=== PATIENT | female | born 1990 | race Caucasian/White ===

== ENCOUNTER 2016-10-27 06:33 | Emergency (ER) | payer OTHER ==
--- NOTE | 2016-10-27 09:24 | DIAGNOSTIC IMAGING REPORT ---
PROCEDURE: CTA THORAX WITH CONTRAST INDICATION: Status post liposuction with chest pressure, initial encounter TECHNIQUE: 80 ml of Isovue 370 was injected intravenously and axial images were obtained of the entire thorax with 3D sagittal and coronal MIP reconstructions. COMPARISON: Chest x-ray 09/16/2016 FINDINGS: No evidence of pulmonary emboli, aortic dissection or aneurysm. Mild right lower lobe and minor left basilar atelectasis. No adenopathy. Small left pleural effusion. Normal heart size. Hepatic steatosis. Bones are unremarkable. There is subcutaneous fat stranding of the flanks bilaterally consistent with a history of liposuction. IMPRESSION: 1. No evidence of pulmonary emboli 2. Right lower lobe postoperative atelectasis 3. Small left pleural effusion 4. Bilateral flank subcutaneous fat infiltration consistent with a history of liposuction 5. Hepatic steatosis 6. Results discussed with Dr. Rodriguez
--- NOTE | 2016-10-27 10:01 | ED CLINICAL REPORT ---
Clinical Report - Physicians/Mid Levels [facility] [address] [place] [address] 10/27/2016 6:33 Patient: SEAN LAWS Time Seen: 06:56. Arrived- By private vehicle. Historian- patient. HISTORY OF PRESENT ILLNESS Chief Complaint: DYSPNEA. This started today at about 5 AM and is still present. It was abrupt in onset and has been constant. The dyspnea is described as moderate. No cough, sputum production, fever, wheezing or chills. No foot swelling. She has experienced sweating episodes and had dyspnea on exertion. She complains of severe, sharp, stabbing, exertional left-sided and central chest pain, currently severe. Recent medical care: The patient was seen recently at another facility in a clinic (reports having Liposuction surgery last Tuesday, this AM had a sudden onset of chest tightness and difficulty breathing). REVIEW OF SYSTEMS No chills, fever, abdominal pain, diarrhea or nausea. No vomiting or urinary problems. She has experienced sweats and had palpitations and constipation. All systems otherwise negative, except as recorded above. PAST HISTORY PCP - Tho at [facility]. Problems: Sprain. Fall. Chest Wall Pain. Chest pain . Nausea. Migraine Headache. Chronic Headache. Anxiety Reaction. Hyperventilation. Gastroesophageal Reflux Disease. Near Syncope. Contusion. Lip Laceration. Head Injury. Syncope. Depression. Headache. Viral Disease. Abdominal Pain. Ovarian Cyst. Additional Surgeries: Appendectomy. Liposuction . Previous Abdominal Surgery. Medications: OxyCODONE HCl Oral 5 mg, as needed. Keflex Oral 500 mg, 4x a day. BusPIRone HCl Oral (Tablet 7.5 mg) 1 tablet, at bedtime. Lexapro Oral 20 mg, at bedtime. Naproxen Oral 500 mg, 2x a day. Omeprazole Oral 20 mg, 2x a day. Promethazine HCl Oral 25 mg, 4x a day as needed. Allergies: Sertraline.(rash). SOCIAL HISTORY Never smoker. Occasional alcohol use. No drug use. FAMILY HISTORY Diabetes in first-degree relative (father). ADDITIONAL NOTES The nursing notes have been reviewed. PHYSICAL EXAM Vital Signs: 10/27/2016 06:41 BP: 137/73. HR: 115. RR: 18. O2 saturation: 99%. Temp: 98.3 F. Pain level now: 8/10. Have been reviewed. Appearance: Alert. Anxious. Eyes: Pupils equal, round and reactive to light. ENT: Pharynx normal. Neck: Normal inspection. No jugular venous distention. CVS: Tachycardia. No cardiac murmur. Respiratory: No respiratory distress. Breath sounds normal. Abdomen: Soft and nontender. No organomegaly. Back: Normal inspection. No CVA tenderness. Skin: Skin warm and dry. Normal skin color. Normal skin turgor. Extremities: Extremities exhibit normal ROM. No lower extremity edema. LABS, X-RAYS, AND EKG EKG: Rate: 105. Non-specific ST segment / T wave abnormalities. Prior EKG unavailable. Changes present when compared to prior EKG. (16 Sep 2016). The study has been independently viewed by me. Chest CT: ( Exam(s): CTA THORAX WITH CONTRAST Date of Exam: 10/27/2016 __ PROCEDURE: CTA THORAX WITH CONTRAST INDICATION: Status post liposuction with chest pressure, initial encounter TECHNIQUE: 80 ml of Isovue 370 was injected intravenously and axial images were obtained of the entire thorax with 3D sagittal and coronal MIP reconstructions. COMPARISON: Chest x-ray 09/16/2016 FINDINGS: No evidence of pulmonary emboli, aortic dissection or aneurysm. Mild right lower lobe and minor left basilar atelectasis. No adenopathy. Small left pleural effusion. Normal heart size. Hepatic steatosis. Bones are unremarkable. There is subcutaneous fat stranding of the flanks bilaterally consistent with a history of liposuction. IMPRESSION: 1. No evidence of pulmonary emboli 2. Right lower lobe postoperative atelectasis 3. Small left pleural effusion 4. Bilateral flank subcutaneous fat infiltration consistent with a history of liposuction 5. Hepatic steatosis). The study was interpreted contemporaneously by me and discussed with the radiologist. Laboratory Tests: UA-Culture if indicated: (KADEN: 10/27/2016 07:15) ( [facility] [place] 07:54) Final results Test Result Flag Units (Reference) URINE COLOR YELLOW URINE APPEARANCE CLEAR URINE GLUCOSE NEGATIVE (NEGATIVE) URINE BILIRUBIN NEGATIVE (NEGATIVE) URINE KETONE NEGATIVE (NEGATIVE) URINE SPECIFIC GRAVITY 1.010 (1.010-1.030) URINE PH 7.5 (5.0-8.0) URINE PROTEIN NEGATIVE (NEGATIVE) URINE UROBILINOGEN 0.2 EU/dL (0.2-1.0) URINE NITRITE NEGATIVE (NEGATIVE) URINE BLOOD NEGATIVE (NEGATIVE) URINE LEUK ESTERASE NEGATIVE (NEGATIVE) URINE RBC NONE SEEN rbc/hpf (0-1) URINE WBC 0-1 wbc/hpf (0-1) URINE EPITHELIAL CELLS 3-5 EPI/hpf (0-5) URINE BACTERIA TRACE (<1+) (NONE SEEN) URINE COMMENT CULT NOT INDICATED URINE CULTURES ARE SET-UP BASED ON THE FOLLOWING CRITERIA:POSITIVE NITRITEPOSITIVE LEUKOCYTE ESTERASEGREATER THAN 10 WHITE BLOOD CELLSMODERATE (2+) OR GREATER BACTERIA Urine: (KADEN: 10/27/2016 07:15) ( [facility] 10/27/2016 07:41) Final results Test Result Flag Units (Reference) URINE NEGATIVE CBC w Diff: (KADEN: 10/27/2016 06:55) ( [facility] [place] 10/27/2016 07:20) Final results Test Result Flag Units (Reference) WHITE BLOOD COUNT 10.3 K/uL (4.5-11.5) RED BLOOD COUNT 3.13 L M/uL (4.00-5.20) HEMOGLOBIN 8.6 L gm/dL (12.0-16.0) HEMATOCRIT 26.5 L % (36.0-46.0) MEAN CELL VOLUME 85 fL (80-100) MEAN CORPUSCULAR HGB 27 pg (26-34) MEAN CORPUSCULAR HGB CONC 32 g/dL (31-37) RED CELL DISTRIBUTION WIDTH 15.8 H % (11.6-14.8) PLATELET COUNT 326 K/uL (150-400) NEUTROPHIL % 63.9 % (50-75) LYMPH % 24.8 L % (25-40) MONO % 7.2 % (3-14) EOSINOPHIL % 3.3 % (0-4) BASOPHIL % 0.8 % (0-2) PT with INR: (KADEN: 10/27/2016 06:55) ( MsgRcvd 10/27/2016 07:21) Final results Test Result Flag Units (Reference) INR 0.9 (0.8-1.2) Low Intensity Therapy: INR 1.5-2.0 PT range 18.5-23.1Mod.Intensity Therapy: INR 2.0-3.0 PT range 23.1-31.5High Intensity Therapy: INR 2.5-3.5 PT range 27.4-35.5High Intensity Therapy 2: INR 3.0-4.0 PT range 31.5-39.3 APTT 25 SECONDS (24-34) D-DIMER QUANTITATIVE 3.40 H ug/mLFEU (0.27-0.52) The primary value of this quantitative assay relates toits negative predictive value (i.e. exclusion) of pulmonaryembolism/deep vein thrombosis/DIC.Elevated levels of d-dimer may also occur with:, age, cancer, inflammation, liver disease,post-op, infection, hematoma, coronary disease, peripheralarteriopathy, bleeding disorders and thrombolytic treatment.Results should be correlated with other clinical andradiological data.Testing Methodology: Latex Immunoassay [id number]: (KADEN: 10/27/2016 06:55) ( MsgRcvd 10/27/2016 10:00) Final results Test Result Flag Units (Reference) PROCALCITONIN <0.5 ng/mL (0-0.5) PCT Concentration: Interpretation : Risk/option for action PCT <=0.5 ng/mL : Systemic : Low risk forinfection(sepsis): progression to severeis not likely. : systemic infection.Local bacterial : CAUTION-PCT levelsinfection is : below 0.5 ng/mL do notpossible. : exclude an infection,because localizedinfections (withoutsystemic signs) may beassociated with suchlow levels. If PCT ismeasured very earlyafter a bacterialchallenge (usually <6hours), these valuesmay still be low. Inthis case PCT shouldbe re-assessed 6-24hours later. PCT >0.5 and : Systemic infection: Moderate risk for<= 2 ng/mL : (sepsis) is : progression to severepossible, but : systemic infection.other conditions : The patient should beare known to : closely monitoredelevate PCT. : both clinically andby re-assessing PCTwithin 6-24 hours. PCT > 2 ng/mL : Systemic infection: High risk for(sepsis) is likely: progression to severeunless other : systemic infection.causes are known. : PCT >= 10 ng/mL : Important systemic: High likelihood ofinflammatory : severe sepsis orresponse, almost : septic shock.exclusively due to:severe bacterial :sepsis or septic :shock. : ALYX: (KADEN: 10/27/2016 06:55) ( MsgRcvd 10/27/2016 08:16) Final results Test Result Flag Units (Reference) CPK 628 H U/L (24-260) CK-MB 1.1 ng/mL (0.5-3.2) %CKMB 0.2 % (0.0-4.0) TROPONIN I <0.05 ng/mL (0.00-1.5) TROPONIN REFERENCE RANGE:<0.1 NEGATIVE0.1-1.5 INDETERMINANT>1.5 POSITIVE CMP: (KADEN: 10/27/2016 06:55) ( MsgRcvd 10/27/2016 07:33) Final results Test Result Flag Units (Reference) GLUCOSE 91 mg/dL (70-110) BUN 7 mg/dL (7-18) CREATININE 0.5 L mg/dL (0.6-1.3) Estimated GFR >60 mL/min Estimated GFR- >60 mL/min Note: Persistent reduction over 3 months in eGFR<60 mL/min/1.73 m2 defines CKD. Patients with eGFR values>=60 mL/min/1.73 m2 may also have CKD if evidence ofpersistent proteinuria. Additional information may be foundat www.kidney.org. SODIUM 139 mmol/L (136-145) POTASSIUM 3.7 mmol/L (3.5-5.1) CHLORIDE 104 mmol/L (98-107) CARBON DIOXIDE 27 mmol/L (21-32) CALCIUM 8.5 mg/dL (8.5-10.1) TOTAL PROTEIN 5.8 L g/dL (6.4-8.2) ALBUMIN 2.7 L g/dL (3.3-5.0) BILIRUBIN, TOTAL 0.7 mg/dL (0.0-1.0) ALKALINE PHOSPHATASE 57 U/L (46-116) AST (SGOT) 65 H U/L (15-37) ALT (SGPT) 66 U/L (12-78) LIPASE 87 U/L (73-393) AMYLASE 30 U/L (25-115) . PROGRESS AND PROCEDURES Course of Care: Patient is stable. Patient/family counseled. Old medical records ordered. Disposition: Discharged. Condition: stable. CLINICAL IMPRESSION Acute dyspnea Pleurisy with effusion. atelectasis. INSTRUCTIONS No driving or operating machinery while taking medication. (use your incentive spirometer as previously prescribed as discussed). Warnings: Further evaluation is necessary. GENERAL WARNINGS: Return or contact your physician immediately if your condition worsens or changes unexpectedly, if not improving as expected, or if other problems arise. Your Current Medications: CONTINUE TAKING THE FOLLOWING MEDICATIONS: BusPIRone HCl Oral : Tablet 7.5 mg, 1 tablet at bedtime. Keflex Oral : 500 mg 4x a day. Lexapro Oral : 20 mg at bedtime. Naproxen Oral : 500 mg 2x a day. Omeprazole Oral : 20 mg 2x a day. OxyCODONE HCl Oral : 5 mg, prn. Promethazine HCl Oral : 25 mg 4x a day, prn. Prescription Medications: Hydroxyzine 50 mg: Take 1 orally every 6 hours as needed for itching. Dispense twenty (20). No refills. Follow-up: Follow up with your doctor tomorrow. Call for an appointment. Understanding of the discharge instructions verbalized by patient and parent. (Electronically signed by Mateo Rodriguez MD 10/31/2016 14:16)
--- NOTE | 2016-10-27 10:01 | ED NURSING NOTES ---
Clinical Report - Nurses [place] [address] [place] [address] 10/27/2016 6:33 Patient: SEAN LAWS TRIAGE Triage time 06:42. Acuity: LEVEL 3. Chief Complaint: CHEST PAIN and DYSPNEA. 06:48. Alert. SEPSIS SCREEN: Sepsis Screen. Negative (no infection suspected/documented). GELA COMA SCORE: Gela Coma Scale: 15- eyes open spontaneously (4); best verbal response- oriented x 4 (5); best motor response- obeys commands (6). --06:48 Solis Horton R.N. 06:41 10/27/16. BP: 137/73. HR: 115. RR: 18. O2 saturation: 99% on room air. Temp: 98.3 F (oral). Pain level now: 05/12. --06:48 Solis Horton R.N. Weight: 86.1 kg stated. Height/Length: 64 inches Per Patient. BMI: 32.6. --06:47 Solis Horton R.N. Medications BusPIRone HCl Oral (Tablet 7.5 mg) 1 tablet, at bedtime. Lexapro Oral 20 mg, at bedtime. Naproxen Oral 500 mg, 2x a day. Omeprazole Oral 20 mg, 2x a day. Promethazine HCl Oral 25 mg, 4x a day as needed. --06:45 Solis Horton R.N. Keflex Oral 500 mg, 4x a day. --06:46 Solis Horton R.N. OxyCODONE HCl Oral 5 mg, as needed. --06:46 Solis Horton R.N. Medication/allergy information source: the patient. --06:48 Solis Horton R.N. Allergies Sertraline.(rash) --06:47 Solis Horton R.N. History Arrived by private vehicle. Historian: patient. Accompanied by mother. Primary physician ([facility]). ( Patient reports having Liposuction surgery last Tuesday, this AM had a sudden onset of chest tightness and difficulty breathing). 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 PAST MEDICAL HX: Immunizations: up-to-date. Last normal menstrual period was 2 weeks ago. SOCIAL HX: Never smoker. Occasional alcohol use. No drug use. No infectious disease exposure. ABUSE ASSESSMENT: No report of abuse. FALL RISK ASSESSMENT: Fall risk assessment completed. No fall risk identified. NUTRITIONAL RISK ASSESSMENT: The nutritional risk assessment revealed no deficiencies. FUNCTIONAL ASSESSMENT: Functional assessment: no impairments noted. LEARNING NEEDS ASSESSMENT: The learning needs assessment revealed no barriers. SKIN INTEGRITY ASSESSMENT: Skin integrity risk assessment completed. No skin integrity risk identified. --06:48 Solis Horton R.N. PROBLEMS: Chest pain . Migraine Headache. Chronic Headache. Anxiety Reaction. Hyperventilation. Gastroesophageal Reflux Disease. Depression. --06:47 Solis Horton R.N. ADDITIONAL SURGERIES: Appendectomy. Dental Surgery. Liposuction . Previous Abdominal Surgery. --06:47 Solis Horton R.N. Interventions ID band on patient. To treatment room. --06:48 Solis Horton R.N. PHYSICAL ASSESSMENT 06:49. Ambulatory to room. Patient gowned. GENERAL / NEURO / PSYCH: Alert. Oriented X 4. HEENT: No facial asymmetry noted. Mucous membranes are pink. RESPIRATORY: Respirations not labored. SKIN: Skin intact. Skin is warm and dry. Normal skin turgor. --06:49 Solis Horton R.N. NURSING PROGRESS NOTES 06:49. Head of bed elevated. Two patient identifiers checked. Call light placed in reach. Side rails up x 1. Bed placed in lowest position. Brakes of bed on. Patient ready for evaluation- chart flagged. --06:49 Solis Horton R.N. 06:57 10/27/2016 Site #1 started via IV in the right antecubital space with an 20g angiocath, with aseptic technique and good blood return; one attempt. Blood drawn: rainbow set. Labeled in the presence of the patient and sent to the lab. Saline lock flushed with 10 mL saline (by Solis Gusman RN). --07:02 Kristopher Vallejo R.N. 07:06 10/27/16. ( Pt up to provide urine sample, steady gait.). --07:06 Kristopher Vallejo R.N. 07:21 10/27/16. Cardiac rhythm: sinus tachycardia; (100). --07:21 Kristopher Vallejo R.N. 07:20 10/27/16. BP: 126/74. HR: 100. RR: 18. O2 saturation: 100% on room air. --07:21 Kristopher Vallejo R.N. 07:21 10/27/16. monitoring engineer, pulse oximeter and NIBP monitor placed on patient; monitor alarms on. --07:21 Kristopher Vallejo R.N. 07:22 10/27/16. Patient ID band checked for patient name and birthdate: patient confirmed. Clean catch urine collected with return of yellow-colored urine; sample sent to lab for urinalysis and culture. Specimen labeled in the presence of the patient. --07:22 Kristopher Vallejo R.N. 07:53 10/27/2016 Started IV Fluids IV NS (Saline); at 1000 mL/hr over 30 minute(s) via site #1. Allergies verified and confirmed 5 rights. IV patency established. IV site checked: no pain, redness, or swelling. IV flushed thoroughly pre- and post-medication administration. Completed per protocol. --07:53 Kristopher Vallejo R.N. 07:54 10/27/16. Cardiac rhythm: sinus tachycardia. EKG time: (0754 AM). EKG was ordered, performed by a tech and shown to the ED physician. --07:54 Kristopher Vallejo R.N. 08:25 10/27/2016 Zofran (Ondansetron HCl) IVP 4 mg given over 2 minute(s) via site #1. Allergies verified and confirmed 5 rights. IV patency established. IV site checked: no pain, redness, or swelling. IV flushed thoroughly pre- and post-medication administration. IVP given by RN. --08:25 Kristopher Vallejo R.N. 08:26 10/27/2016 Dilaudid (HYDROmorphone HCl PF) IVP 1 mg given over 2 minute(s) via site #1. Allergies verified, confirmed 5 rights and sedative warning given to the patient. IV patency established. IV site checked: no pain, redness, or swelling. IV flushed thoroughly pre- and post-medication administration. IVP given by RN. --08:26 Kristopher Vallejo R.N. 08:26 10/27/16. BP: 120/74. HR: 102. RR: 18. O2 saturation: 94% on room air. --08:27 Kristopher Vallejo R.N. 08:27 10/27/16. Cardiac rhythm: sinus tachycardia. --08:27 Kristopher Vallejo R.N. 09:09 10/27/16. ( CT completed). --09:09 Kristopher Vallejo R.N. 09:10 10/27/16. ( Dr Rodriguez performing eval with acid splicer). --09:10 Kristopher Vallejo R.N. 09:14 10/27/2016 Hydroxyzine (HydrOXYzine HCl) PO Capsules 25 mg given. Allergies verified, confirmed 5 rights and sedative warning given to the patient's night baker. --09:14 Montez Jaramillo R.N. 09:40 10/27/16. BP: 126/70. HR: 111. RR: 20. O2 saturation: 95% on room air. --09:40 Kristopher Vallejo R.N. 09:40 10/27/16. --09:40 Kristopher Vallejo R.N. 09:40 10/27/16. Cardiac rhythm: sinus tachycardia; (109). --09:40 Kristopher Vallejo R.N. 09:44 10/27/16. HR: 111. RR: 20. O2 saturation: 94% on room air. Temp: 98.3 F (oral). --09:45 Kristopher Vallejo R.N. 09:45 10/27/16. Cardiac rhythm: sinus tachycardia; (111). --09:45 Kristopher Vallejo R.N. 09:45 10/27/16. ( Educated about IS use, Coughing and deep breathing exercises). --09:45 Kristopher Vallejo R.N. 10:05 10/27/2016 IV Fluids IV NS Discontinued: bag #1 upon discharge. Total amount infused: 750 mL. IV patency established. IV site checked: no pain, redness, or swelling. IV flushed thoroughly. --10:15 Kristopher Vallejo R.N. DISPOSITION / DISCHARGE 10:13 10/27/2016 Site #1 removed upon discharge. Catheter intact. --10:13 Kristopher Vallejo R.N. 10:14 10/27/16. Cardiac rhythm: sinus tachycardia. Condition at departure: improved. The goals identified in the patient's plan of care were met. No learning barriers present. Discharge instructions provided and reviewed with the patient and family. Reviewed warnings. Reviewed medication(s). Treatments reviewed. Patient and family verbalized understanding. Written instructions provided in Macedonian. The patient was discharged by the physician. She was discharged home and accompanied by family. She left the Emergency Department ambulatory and via private vehicle. Family member driving. FALL RISK ASSESSMENT: Fall risk assessment completed. No fall risk identified. --10:14 Kristopher Vallejo R.N. 10:13 10/27/16. BP: 126/72. HR: 106. RR: 20. O2 saturation: 95% on room air. Temp: 98.5 F (oral). --10:14 Kristopher Valleoj R.N. 10:14 10/27/16. Departure time: 10:14. --10:14 Kristopher Vallejo R.N. Locked/Released at 10/27/2016 10:18 by Kristopher Vallejo R.N.
--- NOTE | 2016-10-27 10:01 | ED ORDER SUMMARY ---
..... Patient: SEAN LAWS OrderSheet [facility] VisitID: [id number] [place] [address] 26y, F Registration Date/Time: 10/27/2016 ORDER SHEET Weight: 86.1 kg (stated) Allergies: Sertraline GENERAL ORDERS: Chest 1V Urgent (06:57 10/27/2016 Dayne WALTERS) (Ack 6:59 CHagsterling ER Sample Driller) (Cancelled: Other7:58 Dayne WALTERS) CBC w Diff Urgent (06:57 10/27/2016 Dayne WALTERS) (Ack 6:59 CHagsterling ER Sample Driller) (7:02 JBoardley R.N.) CMP Urgent (06:10/27/2016 Dayne WALTERS) (Ack 6:59 CHagsterling ER Sample Driller) (7:02 JBoardley R.N.) PT with INR Urgent (06:57 10/27/2016 Dayne WALTERS) (Ack 6:59 Maria M ER Sample Driller) (7:02 JBoardley R.N.) PTT Urgent (06:57 10/27/2016 Dayne WALTERS) (Ack 6:59 CHagsterling ER Sample Driller) (7:02 JBoardley R.N.) Amylase Urgent (06:57 10/27/2016 Dayne WALTERS) (Ack 6:59 CHagsterling ER Sample Driller) (7:02 JBoardley R.N.) Lipase Urgent (06:57 10/27/2016 Dayne WALTERS) (Ack 6:59 CHagsterling ER Sample Driller) (7:02 JBoardley R.N.) D-Dimer Urgent (06:57 10/27/2016 Dayne WALTERS) (Ack 6:59 CHagsterling ER Sample Driller) (7:02 JBoardley R.N.) Urine Urgent (06:57 10/27/2016 Dayne WALTERS) (Ack 6:59 CHagsterling ER Sample Driller) (7:20 JBoardley R.N.) UA-Culture if indicated Urgent (06:57 10/27/2016 Dayne WALTERS) (Ack 6:59 CHagsterling ER Sample Driller) (7:20 JBoardley R.N.) Dog Obedience Instructor (Continuous) (07:21 10/27/2016 JBoardley R.N. per protocol) (7:22 JBoardley R.N.) Pulse oximeter (07:21 10/27/2016 JBoardley R.N. per protocol) (7:22 JBoardley R.N.) EKG - ER Stat (07:35 10/27/2016 JBoardley R.N. verbal order read back to Dayne WALTERS) (7:53 JBoardley R.N.) CPK Urgent (07:38 10/27/2016 Dayne WALTERS) (Ack 8:03 LNations ER Tech1) (8:27 JBoardley R.N.) Troponin-I Urgent (07:38 10/27/2016 Dayne WALTERS) (Ack 8:03 LNations ER Tech1) (8:27 JBoardley R.N.) CTA Thorax w Cont (No) (See report) Urgent (07:48 10/27/2016 Dayne WALTERS) (Ack 8:03 LNations ER Tech1) (9:09 JBoardley R.N.) PCT (Procalcitonin) Urgent (09:05 10/27/2016 Dayne WALTERS) (Ack 9:19 LNations ER Tech1) (9:36 JBoardley R.N.) MEDICATION ORDERS: HydrOXYzine PO 25 mg (NOW) (09:10 10/27/2016 Dayne WALTERS) (Ack 9:13 JBoardley R.N.) (9:14 LWhalen R.N.) IV FLUIDS: IV Saline Lock (06:57 10/27/2016 Dayne WALTERS) (Ack 7:02 JBoardley R.N.) (7:02 JBoardley R.N.) IV NS : initial bolus 500 mL (1000 mL/hr), then 125 mL/hr for 4h (NOW); Urgent (07:44 10/27/2016 Dayne WALTERS) (Ack 7:48 JBoardley R.N.) (7:53 JBoardley R.N.) Zofran IV 4 mg (NOW) (08:25 10/27/2016 Kathie Johnson verbal order read back to Dayne WALTERS) (8:25 Kathie Johnson) Dilaudid IV 1 mg (HIGH ALERT MEDICATION, NOW) (08:25 10/27/2016 Kathie Johnson verbal order read back to Dayne WALTERS) (8:26 Kathie Johnson) ORDER SHEET NOTES: [Electronically signed by Kristopher Vallejo R.N. (10:18 10/27/2016)] [Electronically signed by Mateo Rodriguez MD (14:16 10/31/2016)] [Electronically locked/signed by Kristopher Valeljo R.N. (10:18 10/27/2016)]
--- NOTE | 2016-10-27 10:01 | ED NURSING NOTES ---
Clinical Report - Nurses [place] [address] [place] [address] 10/27/2016 6:33 Patient: SEAN LAWS TRIAGE Triage time 06:42. Acuity: LEVEL 3. Chief Complaint: CHEST PAIN and DYSPNEA. 06:48. Alert. SEPSIS SCREEN: Sepsis Screen. Negative (no infection suspected/documented). GELA COMA SCORE: Gela Coma Scale: 15- eyes open spontaneously (4); best verbal response- oriented x 4 (5); best motor response- obeys commands (6). --06:48 Solis Horton R.N. 06:41 10/27/16. BP: 137/73. HR: 115. RR: 18. O2 saturation: 99% on room air. Temp: 98.3 F (oral). Pain level now: 05/12. --06:48 Solis Horton R.N. Weight: 86.1 kg stated. Height/Length: 64 inches Per Patient. BMI: 32.6. --06:47 Solis Horton R.N. Medications BusPIRone HCl Oral (Tablet 7.5 mg) 1 tablet, at bedtime. Lexapro Oral 20 mg, at bedtime. Naproxen Oral 500 mg, 2x a day. Omeprazole Oral 20 mg, 2x a day. Promethazine HCl Oral 25 mg, 4x a day as needed. --06:45 Solis Horton R.N. Keflex Oral 500 mg, 4x a day. --06:46 Solis Horton R.N. OxyCODONE HCl Oral 5 mg, as needed. --06:46 Solis Horton R.N. Medication/allergy information source: the patient. --06:48 Solis Horton R.N. Allergies Sertraline.(rash) --06:47 Solis Horton R.N. History Arrived by private vehicle. Historian: patient. Accompanied by mother. Primary physician ([facility]). ( Patient reports having Liposuction surgery last Tuesday, this AM had a sudden onset of chest tightness and difficulty breathing). Treatment MANAGER INVENTORY MANAGEMENT: (Oxycodone 5mg took 2 about 2 hras ago). PAST MEDICAL HX: Immunizations: up-to-date. Last normal menstrual period was 2 weeks ago. SOCIAL HX: Never smoker. Occasional alcohol use. No drug use. No infectious disease exposure. ABUSE ASSESSMENT: No report of abuse. FALL RISK ASSESSMENT: Fall risk assessment completed. No fall risk identified. NUTRITIONAL RISK ASSESSMENT: The nutritional risk assessment revealed no deficiencies. FUNCTIONAL ASSESSMENT: Functional assessment: no impairments noted. LEARNING NEEDS ASSESSMENT: The learning needs assessment revealed no barriers. SKIN INTEGRITY ASSESSMENT: Skin integrity risk assessment completed. No skin integrity risk identified. --06:48 Solis Horton R.N. PROBLEMS: Chest pain . Migraine Headache. Chronic Headache. Anxiety Reaction. Hyperventilation. Gastroesophageal Reflux Disease. Depression. --06:47 Solis Horton R.N. ADDITIONAL SURGERIES: Appendectomy. Dental Surgery. Liposuction . Previous Abdominal Surgery. --06:47 Solis Horton R.N. Interventions ID band on patient. To treatment room. --06:48 Solis Horton R.N. PHYSICAL ASSESSMENT 06:49. Ambulatory to room. Patient gowned. GENERAL / NEURO / PSYCH: Alert. Oriented X 4. HEENT: No facial asymmetry noted. Mucous membranes are pink. RESPIRATORY: Respirations not labored. SKIN: Skin intact. Skin is warm and dry. Normal skin turgor. --06:49 Solis Horton R.N. NURSING PROGRESS NOTES 06:49. Head of bed elevated. Two patient identifiers checked. Call light placed in reach. Side rails up x 1. Bed placed in lowest position. Brakes of bed on. Patient ready for evaluation- chart flagged. --06:49 Solis Horton R.N. 06:57 10/27/2016 Site #1 started via IV in the right antecubital space with an 20g angiocath, with aseptic technique and good blood return; one attempt. Blood drawn: rainbow set. Labeled in the presence of the patient and sent to the lab. Saline lock flushed with 10 mL saline (by Solis Gusman RN). --07:02 Kristopher Vallejo R.N. 07:06 10/27/16. ( Pt up to provide urine sample, steady gait.). --07:06 Kristopher Vallejo R.N. 07:21 10/27/16. Cardiac rhythm: sinus tachycardia; (100). --07:21 Kristopher Vallejo R.N. 07:20 10/27/16. BP: 126/74. HR: 100. RR: 18. O2 saturation: 100% on room air. --07:21 Kristopher Vallejo R.N. 07:21 10/27/16. awake overnight monitor, pulse oximeter and NIBP monitor placed on patient; monitor alarms on. --07:21 Kristopher Vallejo R.N. 07:22 10/27/16. Patient ID band checked for patient name and birthdate: patient confirmed. Clean catch urine collected with return of yellow-colored urine; sample sent to lab for urinalysis and culture. Specimen labeled in the presence of the patient. --07:22 Kristopher Vallejo R.N. 07:53 10/27/2016 Started IV Fluids IV NS (Saline); at 1000 mL/hr over 30 minute(s) via site #1. Allergies verified and confirmed 5 rights. IV patency established. IV site checked: no pain, redness, or swelling. IV flushed thoroughly pre- and post-medication administration. Completed per protocol. --07:53 Kristopher Vallejo R.N. 07:54 10/27/16. Cardiac rhythm: sinus tachycardia. EKG time: (0754 AM). EKG was ordered, performed by a tech and shown to the ED physician. --07:54 Kristopher Vallejo R.N. 08:25 10/27/2016 Zofran (Ondansetron HCl) IVP 4 mg given over 2 minute(s) via site #1. Allergies verified and confirmed 5 rights. IV patency established. IV site checked: no pain, redness, or swelling. IV flushed thoroughly pre- and post-medication administration. IVP given by RN. --08:25 Kristopher Vallejo R.N. 08:26 10/27/2016 Dilaudid (HYDROmorphone HCl PF) IVP 1 mg given over 2 minute(s) via site #1. Allergies verified, confirmed 5 rights and sedative warning given to the patient. IV patency established. IV site checked: no pain, redness, or swelling. IV flushed thoroughly pre- and post-medication administration. IVP given by RN. --08:26 Kristopher Vallejo R.N. 08:26 10/27/16. BP: 120/74. HR: 102. RR: 18. O2 saturation: 94% on room air. --08:27 Kristopher Vallejo R.N. 08:27 10/27/16. Cardiac rhythm: sinus tachycardia. --08:27 Kristopher Vallejo R.N. 09:09 10/27/16. ( CT completed). --09:09 Kristopher Vallejo R.N. 09:10 10/27/16. ( Dr Rodriguez performing eval with trial court justice). --09:10 Kristopher Vallejo R.N. 09:14 10/27/2016 Hydroxyzine (HydrOXYzine HCl) PO Capsules 25 mg given. Allergies verified, confirmed 5 rights and sedative warning given to the patient's certified orthotist/pedorthist. --09:14 Montez Jaramillo R.N. 09:40 10/27/16. BP: 126/70. HR: 111. RR: 20. O2 saturation: 95% on room air. --09:40 Kristopher Vallejo R.N. 09:40 10/27/16. --09:40 Kristopher Vallejo R.N. 09:40 10/27/16. Cardiac rhythm: sinus tachycardia; (109). --09:40 Kristopher Vallejo R.N. 09:44 10/27/16. HR: 111. RR: 20. O2 saturation: 94% on room air. Temp: 98.3 F (oral). --09:45 Kristopher Vallejo R.N. 09:45 10/27/16. Cardiac rhythm: sinus tachycardia; (111). --09:45 Kristopher Vallejo R.N. 09:45 10/27/16. ( Educated about IS use, Coughing and deep breathing exercises). --09:45 Kristopher Vallejo R.N. 10:05 10/27/2016 IV Fluids IV NS Discontinued: bag #1 upon discharge. Total amount infused: 750 mL. IV patency established. IV site checked: no pain, redness, or swelling. IV flushed thoroughly. --10:15 Kristopher Vallejo R.N. DISPOSITION / DISCHARGE 10:13 10/27/2016 Site #1 removed upon discharge. Catheter intact. --10:13 Kristopher Vallejo R.N. 10:14 10/27/16. Cardiac rhythm: sinus tachycardia. Condition at departure: improved. The goals identified in the patient's plan of care were met. No learning barriers present. Discharge instructions provided and reviewed with the patient and family. Reviewed warnings. Reviewed medication(s). Treatments reviewed. Patient and family verbalized understanding. Written instructions provided in Citizen Of [place]. The patient was discharged by the physician. She was discharged home and accompanied by family. She left the Emergency Department ambulatory and via private vehicle. Family member driving. FALL RISK ASSESSMENT: Fall risk assessment completed. No fall risk identified. --10:14 Kristopher Vallejo R.N. 10:13 10/27/16. BP: 126/72. HR: 106. RR: 20. O2 saturation: 95% on room air. Temp: 98.5 F (oral). --10:14 Kristopher Vallejo R.N. 10:14 10/27/16. Departure time: 10:14. --10:14 Kristopher Vallejo R.N. Locked/Released at 10/27/2016 10:18 by Kristopher Vallejo R.N.
--- NOTE | 2016-10-27 10:01 | ED CLINICAL REPORT ---
Clinical Report - Physicians/Mid Levels [facility] [address] [place] [address] 10/27/2016 6:33 Patient: SEAN LAWS Time Seen: 06:56. Arrived- By private vehicle. Historian- patient. HISTORY OF PRESENT ILLNESS Chief Complaint: DYSPNEA. This started today at about 5 AM and is still present. It was abrupt in onset and has been constant. The dyspnea is described as moderate. No cough, sputum production, fever, wheezing or chills. No foot swelling. She has experienced sweating episodes and had dyspnea on exertion. She complains of severe, sharp, stabbing, exertional left-sided and central chest pain, currently severe. Recent medical care: The patient was seen recently at another facility in a clinic (reports having Liposuction surgery last Tuesday, this AM had a sudden onset of chest tightness and difficulty breathing). REVIEW OF SYSTEMS No chills, fever, abdominal pain, diarrhea or nausea. No vomiting or urinary problems. She has experienced sweats and had palpitations and constipation. All systems otherwise negative, except as recorded above. PAST HISTORY PCP - Tho at [facility]. Problems: Sprain. Fall. Chest Wall Pain. Chest pain . Nausea. Migraine Headache. Chronic Headache. Anxiety Reaction. Hyperventilation. Gastroesophageal Reflux Disease. Near Syncope. Contusion. Lip Laceration. Head Injury. Syncope. Depression. Headache. Viral Disease. Abdominal Pain. Ovarian Cyst. Additional Surgeries: Appendectomy. Liposuction . Previous Abdominal Surgery. Medications: OxyCODONE HCl Oral 5 mg, as needed. Keflex Oral 500 mg, 4x a day. BusPIRone HCl Oral (Tablet 7.5 mg) 1 tablet, at bedtime. Lexapro Oral 20 mg, at bedtime. Naproxen Oral 500 mg, 2x a day. Omeprazole Oral 20 mg, 2x a day. Promethazine HCl Oral 25 mg, 4x a day as needed. Allergies: Sertraline.(rash). SOCIAL HISTORY Never smoker. Occasional alcohol use. No drug use. FAMILY HISTORY Diabetes in first-degree relative (father). ADDITIONAL NOTES The nursing notes have been reviewed. PHYSICAL EXAM Vital Signs: 10/27/2016 06:41 BP: 137/73. HR: 115. RR: 18. O2 saturation: 99%. Temp: 98.3 F. Pain level now: 8/10. Have been reviewed. Appearance: Alert. Anxious. Eyes: Pupils equal, round and reactive to light. ENT: Pharynx normal. Neck: Normal inspection. No jugular venous distention. CVS: Tachycardia. No cardiac murmur. Respiratory: No respiratory distress. Breath sounds normal. Abdomen: Soft and nontender. No organomegaly. Back: Normal inspection. No CVA tenderness. Skin: Skin warm and dry. Normal skin color. Normal skin turgor. Extremities: Extremities exhibit normal ROM. No lower extremity edema. LABS, X-RAYS, AND EKG EKG: Rate: 105. Non-specific ST segment / T wave abnormalities. Prior EKG unavailable. Changes present when compared to prior EKG. (16 Sep 2016). The study has been independently viewed by me. Chest CT: ( Exam(s): CTA THORAX WITH CONTRAST Date of Exam: 10/27/2016 __ PROCEDURE: CTA THORAX WITH CONTRAST INDICATION: Status post liposuction with chest pressure, initial encounter TECHNIQUE: 80 ml of Isovue 370 was injected intravenously and axial images were obtained of the entire thorax with 3D sagittal and coronal MIP reconstructions. COMPARISON: Chest x-ray 09/16/2016 FINDINGS: No evidence of pulmonary emboli, aortic dissection or aneurysm. Mild right lower lobe and minor left basilar atelectasis. No adenopathy. Small left pleural effusion. Normal heart size. Hepatic steatosis. Bones are unremarkable. There is subcutaneous fat stranding of the flanks bilaterally consistent with a history of liposuction. IMPRESSION: 1. No evidence of pulmonary emboli 2. Right lower lobe postoperative atelectasis 3. Small left pleural effusion 4. Bilateral flank subcutaneous fat infiltration consistent with a history of liposuction 5. Hepatic steatosis). The study was interpreted contemporaneously by me and discussed with the radiologist. Laboratory Tests: UA-Culture if indicated: (KADEN: 10/27/2016 07:15) ( [facility] [place] 10/27/2016 07:54) Final results Test Result Flag Units (Reference) URINE COLOR YELLOW URINE APPEARANCE CLEAR URINE GLUCOSE NEGATIVE (NEGATIVE) URINE BILIRUBIN NEGATIVE (NEGATIVE) URINE KETONE NEGATIVE (NEGATIVE) URINE SPECIFIC GRAVITY 1.010 (1.010-1.030) URINE PH 7.5 (5.0-8.0) URINE PROTEIN NEGATIVE (NEGATIVE) URINE UROBILINOGEN 0.2 EU/dL (0.2-1.0) URINE NITRITE NEGATIVE (NEGATIVE) URINE BLOOD NEGATIVE (NEGATIVE) URINE LEUK ESTERASE NEGATIVE (NEGATIVE) URINE RBC NONE SEEN rbc/hpf (0-1) URINE WBC 0-1 wbc/hpf (0-1) URINE EPITHELIAL CELLS 3-5 EPI/hpf (0-5) URINE BACTERIA TRACE (<1+) (NONE SEEN) URINE COMMENT CULT NOT INDICATED URINE CULTURES ARE SET-UP BASED ON THE FOLLOWING CRITERIA:POSITIVE NITRITEPOSITIVE LEUKOCYTE ESTERASEGREATER THAN 10 WHITE BLOOD CELLSMODERATE (2+) OR GREATER BACTERIA Urine: (KADEN: 10/27/2016 07:15) ( [facility] [place] 10/27/2016 07:41) Final results Test Result Flag Units (Reference) URINE NEGATIVE CBC w Diff: (KADEN: 10/27/2016 06:55) ( [facility] 10/27/2016 07:20) Final results Test Result Flag Units (Reference) WHITE BLOOD COUNT 10.3 K/uL (4.5-11.5) RED BLOOD COUNT 3.13 L M/uL (4.00-5.20) HEMOGLOBIN 8.6 L gm/dL (12.0-16.0) HEMATOCRIT 26.5 L % (36.0-46.0) MEAN CELL VOLUME 85 fL (80-100) MEAN CORPUSCULAR HGB 27 pg (26-34) MEAN CORPUSCULAR HGB CONC 32 g/dL (31-37) RED CELL DISTRIBUTION WIDTH 15.8 H % (11.6-14.8) PLATELET COUNT 326 K/uL (150-400) NEUTROPHIL % 63.9 % (50-75) LYMPH % 24.8 L % (25-40) MONO % 7.2 % (3-14) EOSINOPHIL % 3.3 % (0-4) BASOPHIL % 0.8 % (0-2) PT with INR: (KADEN: 10/27/2016 06:55) ( MsgRcvd 10/27/2016 07:21) Final results Test Result Flag Units (Reference) INR 0.9 (0.8-1.2) Low Intensity Therapy: INR 1.5-2.0 PT range 18.5-23.1Mod.Intensity Therapy: INR 2.0-3.0 PT range 23.1-31.5High Intensity Therapy: INR 2.5-3.5 PT range 27.4-35.5High Intensity Therapy 2: INR 3.0-4.0 PT range 31.5-39.3 APTT 25 SECONDS (24-34) D-DIMER QUANTITATIVE 3.40 H ug/mLFEU (0.27-0.52) The primary value of this quantitative assay relates toits negative predictive value (i.e. exclusion) of pulmonaryembolism/deep vein thrombosis/DIC.Elevated levels of d-dimer may also occur with:, age, cancer, inflammation, liver disease,post-op, infection, hematoma, coronary disease, peripheralarteriopathy, bleeding disorders and thrombolytic treatment.Results should be correlated with other clinical andradiological data.Testing Methodology: Latex Immunoassay [id number]: (KADEN: 10/27/2016 06:55) ( MsgRcvd 10/27/2016 10:00) Final results Test Result Flag Units (Reference) PROCALCITONIN <0.5 ng/mL (0-0.5) PCT Concentration: Interpretation : Risk/option for action PCT <=0.5 ng/mL : Systemic : Low risk forinfection(sepsis): progression to severeis not likely. : systemic infection.Local bacterial : CAUTION-PCT levelsinfection is : below 0.5 ng/mL do notpossible. : exclude an infection,because localizedinfections (withoutsystemic signs) may beassociated with suchlow levels. If PCT ismeasured very earlyafter a bacterialchallenge (usually <6hours), these valuesmay still be low. Inthis case PCT shouldbe re-assessed 6-24hours later. PCT >0.5 and : Systemic infection: Moderate risk for<= 2 ng/mL : (sepsis) is : progression to severepossible, but : systemic infection.other conditions : The patient should beare known to : closely monitoredelevate PCT. : both clinically andby re-assessing PCTwithin 6-24 hours. PCT > 2 ng/mL : Systemic infection: High risk for(sepsis) is likely: progression to severeunless other : systemic infection.causes are known. : PCT >= 10 ng/mL : Important systemic: High likelihood ofinflammatory : severe sepsis orresponse, almost : septic shock.exclusively due to:severe bacterial :sepsis or septic :shock. : ALYX: (KADEN: 10/27/2016 06:55) ( MsgRcvd 10/27/2016 08:16) Final results Test Result Flag Units (Reference) CPK 628 H U/L (24-260) CK-MB 1.1 ng/mL (0.5-3.2) %CKMB 0.2 % (0.0-4.0) TROPONIN I <0.05 ng/mL (0.00-1.5) TROPONIN REFERENCE RANGE:<0.1 NEGATIVE0.1-1.5 INDETERMINANT>1.5 POSITIVE CMP: (KADEN: 10/27/2016 06:55) ( MsgRcvd 10/27/2016 07:33) Final results Test Result Flag Units (Reference) GLUCOSE 91 mg/dL (70-110) BUN 7 mg/dL (7-18) CREATININE 0.5 L mg/dL (0.6-1.3) Estimated GFR >60 mL/min Estimated GFR- >60 mL/min Note: Persistent reduction over 3 months in eGFR<60 mL/min/1.73 m2 defines CKD. Patients with eGFR values>=60 mL/min/1.73 m2 may also have CKD if evidence ofpersistent proteinuria. Additional information may be foundat www.kidney.org. SODIUM 139 mmol/L (136-145) POTASSIUM 3.7 mmol/L (3.5-5.1) CHLORIDE 104 mmol/L (98-107) CARBON DIOXIDE 27 mmol/L (21-32) CALCIUM 8.5 mg/dL (8.5-10.1) TOTAL PROTEIN 5.8 L g/dL (6.4-8.2) ALBUMIN 2.7 L g/dL (3.3-5.0) BILIRUBIN, TOTAL 0.7 mg/dL (0.0-1.0) ALKALINE PHOSPHATASE 57 U/L (46-116) AST (SGOT) 65 H U/L (15-37) ALT (SGPT) 66 U/L (12-78) LIPASE 87 U/L (73-393) AMYLASE 30 U/L (25-115) . PROGRESS AND PROCEDURES Course of Care: Patient is stable. Patient/family counseled. Old medical records ordered. Disposition: Discharged. Condition: stable. CLINICAL IMPRESSION Acute dyspnea Pleurisy with effusion. atelectasis. INSTRUCTIONS No driving or operating machinery while taking medication. (use your incentive spirometer as previously prescribed as discussed). Warnings: Further evaluation is necessary. GENERAL WARNINGS: Return or contact your physician immediately if your condition worsens or changes unexpectedly, if not improving as expected, or if other problems arise. Your Current Medications: CONTINUE TAKING THE FOLLOWING MEDICATIONS: BusPIRone HCl Oral : Tablet 7.5 mg, 1 tablet at bedtime. Keflex Oral : 500 mg 4x a day. Lexapro Oral : 20 mg at bedtime. Naproxen Oral : 500 mg 2x a day. Omeprazole Oral : 20 mg 2x a day. OxyCODONE HCl Oral : 5 mg, prn. Promethazine HCl Oral : 25 mg 4x a day, prn. Prescription Medications: Hydroxyzine 50 mg: Take 1 orally every 6 hours as needed for itching. Dispense twenty (20). No refills. Follow-up: Follow up with your doctor tomorrow. Call for an appointment. Understanding of the discharge instructions verbalized by patient and parent. (Electronically signed by Mateo Rodriguez MD 10/31/2016 14:16)
--- NOTE | 2016-10-27 10:01 | ED ORDER SUMMARY ---
..... Patient: SEAN LAWS OrderSheet [facility] VisitID: [id number] [place] [address] 26y, F Registration Date/Time: 10/27/2016 ORDER SHEET Weight: 86.1 kg (stated) Allergies: Sertraline GENERAL ORDERS: Chest 1V Urgent (06:57 10/27/2016 Dayne WALTERS) (Ack 6:59 [facility]agsterling [facility] Bell Spinner Sousaphones) (Cancelled: Other7:58 Dayne WALTERS) CBC w Diff Urgent (06:57 10/27/2016 Dayne WALTERS) (Ack 6:59 [facility]sterling ER [facility] Sousaphones) (7:02 JBoardley R.N.) CMP Urgent (06:10/27/2016 Dayne WALTERS) (Ack 6:59 [facility] [employer] Sousaphones) (7:02 JBoardley R.N.) PT with INR Urgent (06:57 10/27/2016 Dayne WALTERS) (Ack 6:59 Maria M ER [facility] [employer] Sousaphones) (7:02 JBoardley R.N.) PTT Urgent (06:57 10/27/2016 Dayne WALTERS) (Ack 6:59 [facility] [employer] Sousaphones) (7:02 JBoardley R.N.) Amylase Urgent (06:57 10/27/2016 Dayne WALTERS) (Ack 6:59 [facility]ling [facility] [employer]inner Sousaphones) (7:02 JBoardley R.N.) Lipase Urgent (06:57 10/27/2016 Dayne WALTERS) (Ack 6:59 [facility]ling ER [facility] [employer]inner Sousaphones) (7:02 JBoardley R.N.) D-Dimer Urgent (06:57 10/27/2016 Dayne WALTERS) (Ack 6:59 CHag[facility]ling ER [facility] [employer]inner Sousaphones) (7:02 JBoardley R.N.) Urine Urgent (06:57 10/27/2016 Dayne WALTERS) (Ack 6:59 CHagsterling ER [facility] [employer]inner Sousaphones) (7:20 JBoardley R.N.) UA-Culture if indicated Urgent (06:57 10/27/2016 Dayne WALTERS) (Ack 6:59 CHagsterling ER [facility] [employer]inner Sousaphones) (7:20 JBoardley R.N.) Corn Cutter Operator (Continuous) (07:21 10/27/2016 JBoardley R.N. per protocol) (7:22 JBoardley R.N.) Pulse oximeter (07:21 10/27/2016 JBoardley R.N. per protocol) (7:22 JBoardley R.N.) EKG - ER Stat (07:35 10/27/2016 JBoardley R.N. verbal order read back to Dayne WALTERS) (7:53 JBoardley R.N.) CPK Urgent (07:38 10/27/2016 Dayne WALTERS) (Ack 8:03 LNations ER Tech1) (8:27 JBoardley R.N.) Troponin-I Urgent (07:38 10/27/2016 Dayne WALTERS) (Ack 8:03 LNations ER Tech1) (8:27 JBoardley R.N.) CTA Thorax w Cont (No) (See report) Urgent (07:48 10/27/2016 Dayne WALTERS) (Ack 8:03 LNations ER Tech1) (9:09 JBoardley R.N.) PCT (Procalcitonin) Urgent (09:05 10/27/2016 Dayne WALTERS) (Ack 9:19 LNations ER Tech1) (9:36 JBoardley R.N.) MEDICATION ORDERS: HydrOXYzine PO 25 mg (NOW) (09:10 10/27/2016 Dayne WALTERS) (Ack 9:13 JBoardley R.N.) (9:14 LWhalen R.N.) IV FLUIDS: IV Saline Lock (06:57 10/27/2016 Dayne WALTERS) (Ack 7:02 JBoardley R.N.) (7:02 JBoardley R.N.) IV NS : initial bolus 500 mL (1000 mL/hr), then 125 mL/hr for 4h (NOW); Urgent (07:44 10/27/2016 Dayne WALTERS) (Ack 7:48 JBoardley R.N.) (7:53 JBoardley R.N.) Zofran IV 4 mg (NOW) (08:25 10/27/2016 Kathie Johnson verbal order read back to Dayne WALTERS) (8:25 Kathie Johnson) Dilaudid IV 1 mg (HIGH ALERT MEDICATION, NOW) (08:25 10/27/2016 Kathie Johnson verbal order read back to Danye WALTERS) (8:26 Kathie Johnson) ORDER SHEET NOTES: [Electronically signed by Kristopher Vallejo R.N. (10:18 10/27/2016)] [Electronically signed by Mateo Rodriguez MD (14:16 10/31/2016)] [Electronically locked/signed by Kristopher Vallejo R.N. (10:18 10/27/2016)]
--- NOTE | 2016-10-31 14:16 | ED MED RECONCILIATION SUMMARY ---
Patient: SEAN LAWS Medication Reconciliation Report [facility] VisitID: [id number] [address] [place] [address] 26y, F Registration Date/Time: 10/27/2016 Weight: 86.1 kg Height/Length: 64 in. BMI: 32.6 ALLERGIES: Sertraline The patient's Home Medications are listed below: CONTINUE TAKING THE FOLLOWING MEDICATIONS: BusPIRone HCl Oral (7.5 mg) 1 tablet, at bedtime Keflex Oral 500 mg, 4x a day Lexapro Oral 20 mg, at bedtime Naproxen Oral 500 mg, 2x a day Omeprazole Oral 20 mg, 2x a day OxyCODONE HCl Oral 5 mg Promethazine HCl Oral 25 mg, 4x a day The source(s) of the original Home Medication information: patient The following Medications were given to the patient in the Emergency Department: IV NS IV Fluids bolus 0, then 1000 mL/hr, administered: 10/27/2016 7:53:00 AM Zofran [IVP] IVP 4 mg, administered: 10/27/2016 8:25:00 AM Dilaudid [IVP] IVP 1 mg, administered: 10/27/2016 8:26:00 AM Hydroxyzine [PO] PO 25 mg, administered: 10/27/2016 9:14:00 AM The following Medications were prescribed to the patient: Hydroxyzine 50 mg: Take 1 orally every 6 hours as needed for itching. Dispense twenty (20). No refills. -- Mateo Rodriguez MD
--- NOTE | 2016-10-31 14:16 | ED DISCHARGE INSTRUCTIONS ---
Patient: SEAN LAWS General Instructions [facility] VisitID: [id number] [place] [address] 26y, F Registration Date/Time: 10/27/2016 Acute dyspnea Pleurisy with effusion. atelectasis. INSTRUCTIONS No driving or operating machinery while taking medication. (use your incentive spirometer as previously prescribed as discussed). Warnings: Further evaluation is necessary. GENERAL WARNINGS: Return or contact your physician immediately if your condition worsens or changes unexpectedly, if not improving as expected, or if other problems arise. Your Current Medications: CONTINUE TAKING THE FOLLOWING MEDICATIONS: BusPIRone HCl Oral : Tablet 7.5 mg, 1 tablet at bedtime. Keflex Oral : 500 mg 4x a day. Lexapro Oral : 20 mg at bedtime. Naproxen Oral : 500 mg 2x a day. Omeprazole Oral : 20 mg 2x a day. OxyCODONE HCl Oral : 5 mg, prn. Promethazine HCl Oral : 25 mg 4x a day, prn. Prescription Medications: Hydroxyzine 50 mg: Take 1 orally every 6 hours as needed for itching. Dispense twenty (20). No refills. Follow-up: Follow up with your doctor tomorrow. Call for an appointment. Understanding of the discharge instructions verbalized by patient and parent. ADDITIONAL INFORMATION Dyspnea (Shortness Of Breath) Shortness of Breath (also known as "Dyspnea") is the sense that you can't catch your breath or can't get enough air. Dyspnea can be caused by many different conditions such as: Acute asthma attack Worsening of emphysema (also called "COPD") -- a lung diseasethat is caused by smoking A mucus plug blocks a large air passage in the lung -- this can occur with emphysema or chronic bronchitis Congestive Heart Failure ("CHF") -- when a weak heart muscle allows excess fluid to collect inthe lungs Panic attacks, anxiety -- fear can cause rapid breathing ("hyperventilation") Pneumonia -- infection in the lung tissue Exposure to toxic fumes or smoke Pulmonary embolus (blood clot to the lung) Based on your visit today, the exact cause of your shortness of breath is not certain. Your tests do not show any of the serious causes of dyspnea. Sometimes, further testing is needed to find out if a serious problem exists. Therefore, it is important for you to watch for any new symptoms or worsening of your condition and follow up with your doctor as directed. Home Care: When your symptoms are better, resume your usual activities. If you smoke, you need to stop. Join a stop-smoking program or ask your doctor for help. Follow Up with your doctor or as advised by our staff. Get Prompt Medical Attention if any of the following occur: Increasing shortness of breath or wheezing Redness, pain or swelling in one leg Swelling in both legs or ankles Unexpected weight gain Chest, arm, shoulder, neck or upper back pain Dizziness, weakness or fainting Palpitations (the sense that your heart is fluttering, beating fast or hard) Fever of 100.4F (38C) or higher, or as directed by your healthcare provider Cough with dark colored or bloody sputum (mucus) Pleurisy If you have pleurisy, the lining around your lungs is inflamed. It is most often due to a viral infection or pneumonia. It usually lasts for 1014 days. It may cause sharp pain with breathing, coughing, sneezing and movement. Antibiotics are usually not prescribed for this condition unless pneumonia is also present. Home care The following will help you care for your condition at home: If symptoms are severe, rest at home for the first 23 days. Avoid being exposed to cigarette smoke (yours or that of others). You may use acetaminophen or ibuprofen to control pain, unless another pain medicine was prescribed. If you have chronic liver or kidney disease or ever had a stomach ulcer or GI bleeding, talk with your doctor before using these medicines. Follow-up care Follow up with your doctor or as advised if you do not improve over the next week. When to seek medical care Get prompt medical attention if any of the following occur: Increasing shortness of breath Increase in chest pain, or pain spreads to the neck, arm or back Fever over 100.4F (38.0C) for more than three days Coughing up lots of colored sputum (mucus) or blood Redness, pain or swelling of the leg Hydroxyzine Pamoate Oral capsule What is this medicine? HYDROXYZINE (alberta DROX i zeen) is an antihistamine. This medicine is used to treat allergy symptoms. It is also used to treat anxiety and tension. This medicine can be used with other medicines to induce sleep before surgery. How should I use this medicine? Take this medicine by mouth with a full glass of water. Follow the directions on the prescription label. You may take this medicine with food or on an empty stomach. Take your medicine at regular intervals. Do not take your medicine more often than directed. Talk to your mail distribution scheme examiner regarding the use of this medicine in children. Special care may be needed. While this drug may be prescribed for children as young as 6 years of age for selected conditions, precautions do apply. Patients over 65 years old may have a stronger reaction and need a smaller dose. What side effects may I notice from receiving this medicine? Side effects that you should report to your doctor or health post acute care registered nurse as soon as possible: fast or irregular heartbeat difficulty passing urine seizures slurred speech or confusion tremor Side effects that usually do not require medical attention (report to your doctor or health post acute care registered nurse if they continue or are bothersome): constipation drowsiness fatigue headache stomach upset What may interact with this medicine? alcohol barbiturate medicines for sleep or seizures medicines for colds, allergies medicines for depression, anxiety, or emotional disturbances medicines for pain medicines for sleep muscle relaxants What if I miss a dose? If you miss a dose, take it as soon as you can. If it is almost time for your next dose, take only that dose. Do not take double or extra doses. Where should I keep my medicine? Keep out of the reach of children. Store at room temperature between 15 and 30 degrees C (59 and 86 degrees F). Keep container tightly closed. Throw away any unused medicine after the expiration date. What should I tell my health care provider before I take this medicine? They need to know if you have any of these conditions: any chronic illness difficulty passing urine glaucoma heart disease kidney disease liver disease lung disease an unusual or allergic reaction to hydroxyzine, cetirizine, other medicines, foods, dyes, or preservatives or trying to get breast-feeding What should I watch for while using this medicine? Tell your doctor or health post acute care registered nurse if your symptoms do not improve. You may get drowsy or dizzy. Do not drive, use machinery, or do anything that needs mental alertness until you know how this medicine affects you. Do not stand or sit up quickly, especially if you are an older patient. This reduces the risk of dizzy or fainting spells. Alcohol may interfere with the effect of this medicine. Avoid alcoholic drinks. Your mouth may get dry. Chewing sugarless gum or sucking hard candy, and drinking plenty of water may help. Contact your doctor if the problem does not go away or is severe. This medicine may cause dry eyes and blurred vision. If you wear contact lenses you may feel some discomfort. Lubricating drops may help. See your eye doctor if the problem does not go away or is severe. If you are receiving skin tests for allergies, tell your doctor you are using this medicine. You have been given the following additional information: Dyspnea Pleurisy Hydroxyzine Pamoate Oral capsule No driving or operating machinery while taking medication. (Electronically signed by Mateo Rodriguez MD 10/31/2016 14:16)
--- NOTE | 2016-10-31 14:16 | ED MED RECONCILIATION SUMMARY ---
Patient: SEAN LAWS Medication Reconciliation Report [facility] VisitID: [id number] [address] [place] [address] 26y, F Registration Date/Time: 10/27/2016 Weight: 86.1 kg Height/Length: 64 in. BMI: 32.6 ALLERGIES: Sertraline The patient's Home Medications are listed below: CONTINUE TAKING THE FOLLOWING MEDICATIONS: BusPIRone HCl Oral (7.5 mg) 1 tablet, at bedtime Keflex Oral 500 mg, 4x a day Lexapro Oral 20 mg, at bedtime Naproxen Oral 500 mg, 2x a day Omeprazole Oral 20 mg, 2x a day OxyCODONE HCl Oral 5 mg Promethazine HCl Oral 25 mg, 4x a day The source(s) of the original Home Medication information: patient The following Medications were given to the patient in the Emergency Department: IV NS IV Fluids bolus 0, then 1000 mL/hr, administered: 10/27/2016 7:53:00 AM Zofran [IVP] IVP 4 mg, administered: 10/27/2016 8:25:00 AM Dilaudid [IVP] IVP 1 mg, administered: 10/27/2016 8:26:00 AM Hydroxyzine [PO] PO 25 mg, administered: 10/27/2016 9:14:00 AM The following Medications were prescribed to the patient: Hydroxyzine 50 mg: Take 1 orally every 6 hours as needed for itching. Dispense twenty (20). No refills. -- Mateo Rodriguez MD
--- NOTE | 2016-10-31 14:16 | ED MAR SUMMARY ---
..... Medication Administration Record [facility] [address] [place] [address] Patient: SEAN LAWS Visit ID: [id number] 26y, F Weight: 86.1 kg Height/Length: 64 in BMI: 32.6 ALLERGIES: Sertraline Start 07:53 10/27/2016 Kristopher Vallejo R.N., Stop 10:05 10/27/2016 Kristopher Vallejo R.N. Medication Administered: IV NS (SALINE), Dose: IV Fluids over 30 minute(s), Rate: 1000 mL/hr, Site: #1 right AC. Medication Ordered: IV NS : initial bolus 500 mL (1000 mL/hr), then 125 mL/hr for 4h (NOW); Urgent. Given 08:25 10/27/2016 Kristopher Vallejo R.N. Medication Administered: ZOFRAN [IVP] (ONDANSETRON HCL), Dose: 4 mg IVP over 2 minute(s), Site: #1 right AC. Medication Ordered: Zofran IV 4 mg (NOW). Given 08:26 10/27/2016 Kristopher Vallejo R.N. Medication Administered: DILAUDID [IVP] (HYDROMORPHONE HCL PF), Dose: 1 mg IVP over 2 minute(s), Site: #1 right AC. Medication Ordered: Dilaudid IV 1 mg (HIGH ALERT MEDICATION, NOW). Given 09:14 10/27/2016 Montez Jaramillo R.N. Medication Administered: HYDROXYZINE [PO] (HYDROXYZINE HCL), Dose: 25 mg Capsules PO. Medication Ordered: HydrOXYzine PO 25 mg (NOW).
--- NOTE | 2016-10-31 14:16 | ED MAR SUMMARY ---
..... Medication Administration Record [facility] [address] [address] Patient: SEAN LAWS Visit ID: [id number] 26y, F Weight: 86.1 kg Height/Length: 64 in BMI: 32.6 ALLERGIES: Sertraline Start 07:53 10/27/2016 Kristopher Vallejo R.N., Stop 10:05 10/27/2016 Kristopher Vallejo R.N. Medication Administered: IV NS (SALINE), Dose: IV Fluids over 30 minute(s), Rate: 1000 mL/hr, Site: #1 right AC. Medication Ordered: IV NS : initial bolus 500 mL (1000 mL/hr), then 125 mL/hr for 4h (NOW); Urgent. Given 08:25 10/27/2016 Kristopher Vallejo R.N. Medication Administered: ZOFRAN [IVP] (ONDANSETRON HCL), Dose: 4 mg IVP over 2 minute(s), Site: #1 right AC. Medication Ordered: Zofran IV 4 mg (NOW). Given 08:26 10/27/2016 Kristopher Vallejo R.N. Medication Administered: DILAUDID [IVP] (HYDROMORPHONE HCL PF), Dose: 1 mg IVP over 2 minute(s), Site: #1 right AC. Medication Ordered: Dilaudid IV 1 mg (HIGH ALERT MEDICATION, NOW). Given 09:14 10/27/2016 Montez Jaramillo R.N. Medication Administered: HYDROXYZINE [PO] (HYDROXYZINE HCL), Dose: 25 mg Capsules PO. Medication Ordered: HydrOXYzine PO 25 mg (NOW).
== END 2016-10-27 10:14 | disposition home or self-care (01) ==
LOC: ED SRH 06:33
DX: R06.00 Dyspnea, unspecified (principal); J91.8 Pleural effusion in other conditions classified elsewhere; J98.11 Atelectasis; K21.9 Gastro-esophageal reflux disease without esophagitis; Z88.8 Allergy status to other drugs, medicaments and biological substances
CPT/HCPCS: 90004; 90100; 90616; 90617; 91556; 92235; 92530; 92610; 93004; 93070; 94001; 94060; 95059